=== PATIENT | female | born 1940 | race Caucasian/White ===

== ENCOUNTER → 2023-10-13 10:04 | Outpatient (REF) | payer OTHER, SELFPAY ==
[2023-10-13 11:19] LABS: NT-proBNP 493 pg/ml
== END ==
LOC: HWLAB 10:04
PROVIDERS: ATTENDING PHYSICIAN Internal Medicine Cardiovascular Disease; FAMILY PHYSICIAN Family Medicine
DX: I35.0 Nonrheumatic aortic (valve) stenosis (principal); R60.9 Edema, unspecified
CPT/HCPCS: 36415; 83880